=== PATIENT | male | born 1970 | race Caucasian/White ===

== ENCOUNTER 2024-01-26 04:33 | Emergency (ER) | payer OTHER, SELFPAY ==
--- NOTE | 2024-01-26 04:34 | ED.GENADULT ---
HPI - General Adult General Chief complaint: Back Pain/Injury Stated complaint: back pain Time Seen by Provider: 01/26/24 04:33 History of Present Illness HPI narrative: Patient is a 53-year-old male with no significant past medical history presents via medics from [facility] for evaluation of low back pain. He states that a few days ago he was working on his car in ?tweaked his low back. He denies any numbness weakness tingling to lower extremities denies any saddle paresthesias denies any bowel or urinary retention or incontinence. States that he did go to to his PCP on 01/23/2024 when he initially hurt his back, he was prescribed cyclobenzaprine for home he states that the pain has been intermittent but woke up today with severe low back spasms/pain to the point that he was not able to stand and walk therefore called medics. According to medics he did receive a proximally 1.5 mg of Dilaudid and did receive 5 mg of Versed prior to arrival. He denies any other injuries denies any other symptoms at this time. At time of evaluation patient was able to stand bear weight and ambulate from the stretcher. Related Data Previous Rx's Medication Instructions Recorded cyclobenzaprine 10 mg tablet 10 mg PO BEDTIME PRN muscle spasm 01/23/24 #7 tabs diazepam 5 mg tablet (Valium) 5 mg PO BID PRN muscle spasm 5 01/26/24 days #10 tabs prednisone 20 mg tablet 40 mg (2 x 20 mg) PO DAILY 5 days 01/26/24 #10 tabs Allergies Allergy/AdvReac Type Severity Reaction Status Date / Time No Known Drug Allergies Allergy Verified 01/23/24 11:03 Review of Systems Review of Systems Narrative: General: Denies fever, chills, weight loss HEENT: Denies headache, eye drainage, eye irritation, head trauma, sore throat, voice change Cardiovascular: Denies any chest pain, palpitations, shortness of breath, tachycardia Respiratory: Denies any shortness of breath, cough, wheeze, stridor GI/: Denies any abdominal pain, nausea, vomiting, diarrhea, bright red blood per rectum, melanotic stools, urinary frequency, urinary retention, dysuria, hematuria MSK: Positive low back pain Skin: Denies any rashes, lesions, discoloration Neuro: Denies any headache, lightheadedness, dizziness, fainting, weakness Psych: Denies SI/HI Patient History Social History Smoking Status: Never smoker Smoking Status: Never smoker Exam Narrative Exam Narrative: General: Cooperative, comfortable, well-developed, not in acute distress HEENT: Normocephalic, atraumatic, PERRLA, normal sclera, eyelids normal, Neck: Active full range of motion, atraumatic Chest: Normal to inspection, negative crepitus, no overlying erythema ecchymosis Respiratory: Normal respiratory effort, not in acute respiratory distress, clear to auscultation bilaterally negative cough, wheeze, tachypnea, rhonchi, rales Cardiology: Regular rate rhythm negative gallop, murmur, rubs GI/: Normal to inspection, soft, nonrigid, no tenderness to palpation, exam deferred MSK: Full range of active range of motion of all 4 extremities, atraumatic, patient with paraspinal muscle tenderness to palpation of the lumbar spine but no tenderness to palpation of the midline lumbar thoracic spine. He was able to stand bear weight ambulate slowly from the stretcher here in the emergency department. Skin: No rashes lesions noted Neuro: Alert awake oriented x3, moves all 4 extremities spontaneously, cranial nerves intact, able to answer all questions appropriately follows commands appropriately Psych: Cooperative, negative suicidal or homicidal ideations Initial Vital Signs Initial Vital Signs: Vital Signs Temperature 97.7 F 01/26/24 04:44 Pulse Rate 89 01/26/24 04:44 Respiratory Rate 18 01/26/24 04:44 Blood Pressure 163/93 H 01/26/24 04:44 Pulse Oximetry 93 01/26/24 04:44 Oxygen Delivery Method Room Air 01/26/24 04:44 Course Orders Ordered: ED Orders 01/26/24 04:42 CT lumbar spine wo con Stat Diazepam (Diazepam 2 Mg Tablet) 2 mg PO NOW ONE Stop: 01/26/24 05:55 Discontinued Medications Dexamethasone (Dexamethasone 10 Mg/Ml Vial) 10 mg PO NOW ONE Stop: 01/26/24 04:41 Last Admin: 01/26/24 05:12 Dose: 10 mg Diazepam (Diazepam 2 Mg Tablet) 2 mg PO NOW ONE Stop: 01/26/24 04:41 Last Admin: 01/26/24 05:14 Dose: 2 mg Ketorolac Tromethamine (Ketorolac 30 Mg/Ml Vial) 15 mg IM NOW ONE Stop: 01/26/24 04:41 Last Admin: 01/26/24 05:12 Dose: 15 mg Vital Signs Vital signs: Vital Signs - 8 hr 01/26/24 04:44 Temperature 97.7 F Pulse Rate 89 Respiratory Rate 18 Blood Pressure 163/93 H Pulse Oximetry 93 Oxygen Delivery Method Room Air Medical Decision Making Differential Diagnosis Differential Diagnosis: Muscle spasm, muscle strain, Imaging Data CT lumbar: Radiologist's Impression: Preliminary read showing spondylotic changes of the lumbar spine without acute traumatic injury, there is no central or significant central canal stenosis. MDM Narrative Medical decision making narrative: Patient is a 53-year-old male without any significant past medical history presents from [facility] for evaluation of low back pain. States that this started approximately 3 days ago when he is work on his car. States that he has been having intermittent low back pain since then but woke up this morning with worsening back pain. Denies any red flags for cauda equina. Did receive Dilaudid and Versed by medics prior to arrival. Here patient received Decadron, Toradol, Valium, CT scan was obtained which showed no acute findings. Patient was given strict return precautions he will be sent home with steroids and Valium, send patient home with walker he verbalized understanding of this agrees to being discharged home with outpatient follow up Discharge Plan Departure Patient Disposition: Home Clinical Impression: Lumbar strain Activity Restrictions/Additional Instructions: Please read the discharge instructions sheet carefully and bring all papers to all doctor follow-up visits, as it may contain information that your doctor may want to see. Disease processes change and evolve, if your symptoms worsen or if you develop any new symptoms that are concerning to you please return for evaluation. Your evaluation today does not show any evidence of any life-threatening/serious illnesses requiring admission to the hospital or surgery. Please follow-up with your doctor for re-evaluation in approximately 1 day. Seek immediate medical attention for any worrisome symptoms. Prescriptions: New diazepam [Valium] 5 mg tablet 5 mg PO BID PRN (Reason: muscle spasm) 5 Days Qty: 10 0RF prednisone 20 mg tablet 40 mg PO DAILY 5 Days Qty: 10 0RF No Action cyclobenzaprine 10 mg tablet 10 mg PO BEDTIME PRN (Reason: muscle spasm) Qty: 7 0RF Rx Instructions: Do not take medication prior to working/driving. Referrals: Basia Ibrahim PA-C [Primary Care Provider] - Stand Alone Forms: Patient Portal/API/Survey, Work Release Note
[2024-01-26 04:39] VITALS: BP 165/93; PULSE 90; O2SAT 93
--- NOTE | 2024-01-26 04:42 | DI.CT.S_ITS ---
PROCEDURE: CT LUMBAR SPINE WO CON INDICATIONS: low back pain TECHNIQUE: Noncontrast 3 mm thick sections acquired from the T12 level to the sacrum. Sagittal and coronal reformats were constructed. For radiation dose reduction, the following was used: automated exposure control. COMPARISON: None. FINDINGS: Image quality: Excellent. Bones: There is normal bony alignment. No acute vertebral body compression fractures. No suspicious lytic or blastic bony lesions. No pars defects. Five lumbar-type vertebral bodies are present. T12-L1: Normal L1-L2: Minimal degenerative changes with osteophytosis and minimal loss of disc height. L2-L3: Normal L3-L4: Normal L4-L5: Normal L5-S1: There are mild degenerative changes with subchondral sclerosis and cystic degeneration with minimal loss of disc height. Soft tissues: No retroperitoneal masses or hematomas. Visualized aorta is normal in caliber. IMPRESSION: Minimal to mild degenerative disc disease at L1-L2 and L5-S1 Dictated by: Bridgette Santos M.D. on 01/26/2024 at 8:13 Approved by: Bridgette Santos M.D. on 01/26/2024 at 8:16
[2024-01-26 04:44] VITALS: BP 163/93; PULSE 89; RESP 18; TEMP 36.5; O2SAT 93; BMI 30.3
[2024-01-26 05:06] VITALS: BP 147/84; PULSE 80; O2SAT 92
[2024-01-26] MEDS: KETOROLAC 30 MG/ML VIAL 15 MG IM (05:12)
[2024-01-26] MEDS: DEXAMETHASONE 10 MG/ML VIAL PO (05:12)
[2024-01-26] MEDS: diazePAM 2 MG TABLET PO ×2 (05:14→06:55)
[2024-01-26 05:30] VITALS: BP 148/81; PULSE 81; O2SAT 91
[2024-01-26 06:00] VITALS: BP 134/74; PULSE 76; RESP 18; O2SAT 92
== END 2024-01-26 07:00 | disposition home or self-care (01) ==
PROVIDERS: Emergency Provider Student in an Organized Health Care Education/Training Program; PCP Physician Assistant
DX: S39.012A Strain of muscle, fascia and tendon of lower back, initial encounter (principal); X50.1XXA Overexertion from prolonged static or awkward postures, initial encounter
CPT/HCPCS: 72131; 96372; 99284; J1100; J1885

== ENCOUNTER → 2024-02-21 13:08 | Outpatient (CLI) | payer OTHER, SELFPAY ==
[2024-02-21 20:01] LABS: Add Manual Diff / Slide Review NO; Basophils Absolute Auto 0 /uL (0-100); Basophils Percent Auto 0.5 % (0-2); Eosinophils Absolute Auto 200 /uL (0-450); Eosinophils Percent Auto 3.4 % (2-4); Hematocrit 46.9 % (41-53); Lymphocytes Absolute Auto 1600 /uL (1100-4500); Lymphocytes Percent Auto 26.5 % (25-40); Mean Corpuscular HGB Conc 34.2 % (30-36); Mean Corpuscular Hemoglobin 29.1 PG (26-34); Mean Corpuscular Volume 85.2 fL (80-100); Monocytes Absolute Auto 500 /uL (0-900); Monocytes Percent Auto 8.2 % (3-14); Neutrophils Absolute Auto 3800 /uL (1500-7000); Neutrophils Percent Auto 61.4 % (50-75); Platelet Count 256 X10^3/uL (150-400); Red Blood Cell Count 5.51 X10^6/uL (4.5-5.9); Red Cell Distribution Width 14.2 % (11.6-14.8); White Blood Cell Count 6.2 X10^3/uL (4.5-11.0)
[2024-02-21 20:10] LABS: HEMOLYSIS < 15 (0-50); Iron 144 ug/dL (49-181)
[2024-02-21 20:14] LABS: Alanine Aminotransferase 127 IU/L (<50); Albumin 4.8 g/dL (3.5-5.0); Albumin Globulin Ratio 1.3 (1.0-2.8); Alkaline Phosphatase 92 U/L (38-126); Aspartate Aminotransferase 88 IU/L (17-59); Bilirubin Total 1.4 mg/dL (0.2-1.3); Blood Urea Nitrogen 17 mg/dL (9-20); Calcium 9.6 mg/dL (8.4-10.2); Carbon Dioxide 30 mmol/L (22-32); Chloride 101 mmol/L (98-107); Estimated Glomerular Filt Rate > 60 mL/min (>60); Globulin 3.7 g/dL (1.7-4.1); Glucose 94 mg/dL (70-100); HEMOLYSIS 30 (0-50); Potassium 4.1 mmol/L (3.4-5.1); Sodium 138 mmol/L (137-145); Total Protein 8.5 g/dL (6.3-8.2)
[2024-02-21 20:25] LABS: Percent Iron Saturation 47 % (20-50); Total Iron Binding Capacity 306 ug/dL (261-462); Transferrin 313 mg/dL (206-381)
[2024-02-21 20:45] LABS: Thyroid Stimulating Hormone 1.77 uIU/mL (0.47-4.68)
[2024-02-21 20:48] LABS: Ferritin 393 ng/mL (18-464)
[2024-02-21 21:22] LABS: Folate 19.7 ng/mL (2.76-20.0); Vitamin B12 885 pg/mL (239-931)
[2024-02-23 03:36] LABS: Ceruloplasmin 25.8 mg/dL (16.0-31.0)
[2024-02-26 13:11] LABS: ANA Screen, IFA Negative (.)
== END ==
PROVIDERS: PCP Family Medicine; Visit Provider Family Medicine
DX: R53.83 Other fatigue (principal); R29.818 Other symptoms and signs involving the nervous system; R25.8 Other abnormal involuntary movements; G25.3 Myoclonus; R25.1 Tremor, unspecified; R29.2 Abnormal reflex; I73.00 Raynaud's syndrome without gangrene; R03.0 Elevated blood-pressure reading, without diagnosis of hypertension; R06.81 Apnea, not elsewhere classified
CPT/HCPCS: 80053; 82390; 82607; 82728; 82746; 83540; 83550; 84443; 85025; 86038

== ENCOUNTER → 2024-02-24 16:00 | Outpatient (CLI) | payer OTHER, SELFPAY ==
--- NOTE | 2024-02-24 16:03 | DI.MRI.S_ITS ---
PROCEDURE: MR HEAD/BRAIN WO/W CON INDICATIONS: hyperreflexia with 2 beats clonus and possible babinski TECHNIQUE: Noncontrast axial T1 spin echo, axial T2 fast spin echo, sagittal and axial FLAIR, coronal T2 fast spin echo, axial gradient echo, axial diffusion and ADC through the brain. After the administration of contrast, axial and coronal and sagittal 3D VIBE or T1 spin echo with fat saturation through the brain. COMPARISON: None. FINDINGS: CSF Spaces: Basal cisterns are patent. No extra-axial fluid collections. Ventricles are normal in size and shape. Brain: No intracranial masses or hemorrhage. Egan/white matter interface is normal. Brainstem appears normal. Diffusion-weighted sequence is unremarkable without evidence of acute infarct. Normal intravascular flow voids are present. Skull and face: Calvarial marrow is normal in signal. Orbits appear normal. Sinuses: Sinuses and mastoids appear clear. IMPRESSION: Normal MRI of the brain with and without contrast Approved by: Wilbert Jackson M.D. on 02/24/2024 at 16:37
== END ==
PROVIDERS: PCP Family Medicine; Referring Provider Family Medicine; Visit Provider Family Medicine
DX: G25.3 Myoclonus (principal); R25.8 Other abnormal involuntary movements; R25.1 Tremor, unspecified; R29.2 Abnormal reflex; R29.818 Other symptoms and signs involving the nervous system
CPT/HCPCS: 70553; A9579

== ENCOUNTER → 2024-03-20 13:40 | Outpatient (CLI) | payer OTHER, SELFPAY ==
[2024-03-20 20:13] LABS: Magnesium 1.8 mg/dL (1.6-2.3)
[2024-03-22 08:10] LABS: Parathyroid Hormone Int 51 pg/mL (15-65)
[2024-03-22 10:36] LABS: Ionized Calcium 4.9 mg/dL (4.5-5.6)
== END ==
PROVIDERS: PCP Family Medicine; Visit Provider Family Medicine
DX: G25.3 Myoclonus (principal)
CPT/HCPCS: 82330; 83735; 83970

== ENCOUNTER → 2024-05-03 14:14 | Outpatient (CLI) | payer OTHER, SELFPAY ==
--- NOTE | 2024-05-03 14:16 | DI.MRI.S_ITS ---
PROCEDURE: MR THORACIC SPINE WO CON INDICATIONS: propriospinal muclonus,paresthesia of skin,spasms TECHNIQUE: Noncontrast sagittal T1 spine echo and T2 fast spin echo, sagittal STIR, and T2 fast spin echo through the thoracic spine. COMPARISON: None. FINDINGS: Image quality: Excellent. Alignment and Curvature: There is normal bony alignment. Bone Marrow: Marrow is of normal overall signal. No acute vertebral body compression fractures. Spinal Cord: Visualized spinal cord is normal in size and signal. Paraspinous Soft Tissues: No paravertebral masses. Miscellaneous: On axial images, central canal and foramina appear widely patent at all scanned levels. IMPRESSION: Unremarkable MRI of the thoracic spine Approved by: Wilbert Jackson M.D. on 05/05/2024 at 12:15
--- NOTE | 2024-05-03 14:16 | DI.MRI.S_ITS ---
PROCEDURE: MR CERVICAL SPINE WO CON INDICATIONS: Pain TECHNIQUE: Noncontrast sagittal T1 spin echo and T2 fast spin echo, sagittal STIR, foraminal oblique sagittal T2 fast spin echo, and axial gradient echo or T2 fast spin echo through the cervical spine. COMPARISON: None. FINDINGS: Image quality: Excellent. Alignment and Curvature: There is normal bony alignment. Bone Marrow: Marrow demonstrates normal overall signal. Spinal Cord: Visualized spinal cord has normal size and signal. No cerebellar tonsillar herniation. Paraspinous Soft Tissues: No paravertebral masses. Prevertebral soft tissues are normal in thickness. C2-C3: Normal appearance. C3-C4: No central or foraminal stenosis C4-C5: Central or foraminal stenosis C5-C6: Posterior disc osteophyte complex No central or foraminal stenosis C6-C7: Posterior disc osteophyte complex. Mild central stenosis. Arthropathy. Moderate bilateral foraminal stenosis greater on the left C7-T1: No central or foraminal stenosis IMPRESSION: Arthropathy related moderate bilateral foraminal stenosis at C6-7 Approved by: Wilbert Jackson M.D. on 05/05/2024 at 12:19
== END ==
PROVIDERS: PCP Family Medicine; Referring Provider Psychiatry & Neurology Neurology; Visit Provider Psychiatry & Neurology Neurology
DX: M47.812 Spondylosis without myelopathy or radiculopathy, cervical region (principal); M48.02 Spinal stenosis, cervical region; G25.3 Myoclonus; R20.2 Paresthesia of skin; M62.838 Other muscle spasm; R29.2 Abnormal reflex; R33.9 Retention of urine, unspecified
CPT/HCPCS: 72141; 72146

== ENCOUNTER 2024-05-29 17:28 | Emergency (ER) | payer OTHER, SELFPAY ==
[2024-05-29 17:49] VITALS: BP 143/87; PULSE 75; RESP 16; TEMP 36.8; O2SAT 97; BMI 30.9
[2024-05-29 18:00] VITALS: BP 136/85
[2024-05-29 18:01] VITALS: PULSE 75; O2SAT 94
[2024-05-29 18:04] LABS: Add Manual Diff / Slide Review NO; Basophils Absolute Auto 0 /uL (0-100); Basophils Percent Auto 0.5 % (0-2); Eosinophils Absolute Auto 200 /uL (0-450); Eosinophils Percent Auto 2.6 % (2-4); Hematocrit 50.5 % (41-53); Hemoglobin 17.1 g/dL (13.5-17.5); Lymphocytes Absolute Auto 1900 /uL (1100-4500); Lymphocytes Percent Auto 23.9 % (25-40); Mean Corpuscular HGB Conc 33.9 % (30-36); Mean Corpuscular Volume 85.5 fL (80-100); Monocytes Absolute Auto 600 /uL (0-900); Monocytes Percent Auto 7.8 % (3-14); Neutrophils Absolute Auto 5100 /uL (1500-7000); Neutrophils Percent Auto 65.2 % (50-75); Platelet Count 266 X10^3/uL (150-400); Red Blood Cell Count 5.91 X10^6/uL (4.5-5.9); Red Cell Distribution Width 13.3 % (11.6-14.8); White Blood Cell Count 7.9 X10^3/uL (4.5-11.0)
[2024-05-29 18:16] LABS: Alanine Aminotransferase 43 IU/L (<50); Albumin 4.8 g/dL (3.5-5.0); Albumin Globulin Ratio 1.5 (1.0-2.8); Alkaline Phosphatase 84 U/L (38-126); Aspartate Aminotransferase 45 IU/L (17-59); BUN Creatinine Ratio 19.4 (6-22); Bilirubin Total 1.2 mg/dL (0.2-1.3); Blood Urea Nitrogen 20 mg/dL (9-20); Calcium 9.2 mg/dL (8.4-10.2); Carbon Dioxide 20 mmol/L (22-32); Chloride 104 mmol/L (98-107); Estimated Glomerular Filt Rate > 60 mL/min (>60); Globulin 3.3 g/dL (1.7-4.1); Glucose 92 mg/dL (70-100); HEMOLYSIS 20 (0-50); Lipase 68 U/L (23-300); Potassium 3.9 mmol/L (3.4-5.1); Sodium 137 mmol/L (137-145); Total Protein 8.1 g/dL (6.3-8.2)
[2024-05-29 18:30] VITALS: BP 132/88; PULSE 76; O2SAT 93
[2024-05-29 19:00] VITALS: BP 125/88; PULSE 73; O2SAT 94
[2024-05-29 19:30] VITALS: BP 128/87; PULSE 72; RESP 16; O2SAT 94
--- NOTE | 2024-05-29 19:34 | ED_ITS ---
HPI - Abdominal Pain General Chief Complaint: Abdominal Pain Stated Complaint: abd pain Time Seen by Provider: 05/29/24 19:34 Source: patient Mode of arrival: EMS History of Present Illness HPI narrative: 54-year-old male with a past medical history of diverticulitis comes into the ED from home for evaluation of abdominal pain. He states that he was diagnosed on Sunday with diverticulitis but states his pain is getting worse to his abdomen. He states that he does have a CT scan scheduled for next week on the this was ordered by his primary care doctor who started him on Augmentin for diverticulitis. He states he has a little bit of nausea but otherwise not complaining of any other symptoms at this time. Has a history of appendectomy. Related Data Previous Rx's Medication Instructions Recorded amoxicillin 875 mg-potassium 1 tab PO BID diverticulitis #20 05/26/24 clavulanate 125 mg tablet tabs polyethylene glycol 3350 17 17 g PO DAILY 1 month #238 grams 05/29/24 gram/dose oral powder (Miralax) Allergies Allergy/AdvReac Type Severity Reaction Status Date / Time No Known Drug Allergies Allergy Verified 05/29/24 17:52 Review of Systems Review of Systems Narrative: General: Denies fever, chills, weight loss HEENT: Denies headache, eye drainage, eye irritation, head trauma, sore throat, voice change Cardiovascular: Denies any chest pain, palpitations, tachycardia Respiratory: Denies any shortness of breath, cough, wheeze, stridor GI/: Positiveabdominal pain, nausea, vomiting, denies diarrhea, bright red blood per rectum, melanotic stools, urinary frequency, urinary retention, dysuria, hematuria MSK: Denies any joint pain, muscle pains, swelling Skin: Denies any rashes, lesions, discoloration Neuro: Denies any headache, lightheadedness, dizziness, fainting, weakness Psych: Denies SI/HI Patient History Social History Smoking Status: Never smoker additional social history: has history of bulging discs in [place] in the past. no etoh, no cigs [place] for 7 yrs lives with works for [employer] brother -- fibromyalgia 02/2024 Smoking Status: Never smoker Exam Narrative Exam Narrative: General: Cooperative, comfortable, well-developed, not in acute distress HEENT: Normocephalic, atraumatic, PERRLA, normal sclera, eyelids normal, Neck: Active full range of motion, atraumatic Chest: Normal to inspection, negative crepitus, no overlying erythema ecchymosis Respiratory: Normal respiratory effort, not in acute respiratory distress, clear to auscultation bilaterally negative cough, wheeze, tachypnea, rhonchi, rales Cardiology: Regular rate rhythm negative gallop, murmur, rubs GI/: Normal to inspection, soft, nonrigid, no tenderness to palpation, exam deferred MSK: Full range of active range of motion of all 4 extremities, atraumatic Skin: No rashes lesions noted Neuro: Alert awake oriented x3, moves all 4 extremities spontaneously, cranial nerves intact, able to answer all questions appropriately follows commands appropriately Psych: Cooperative, negative suicidal or homicidal ideations Initial Vital Signs Initial Vital Signs: Vital Signs Temperature 98.2 F 05/29/24 17:49 Pulse Rate 75 05/29/24 17:49 Respiratory Rate 16 05/29/24 17:49 Blood Pressure 143/87 H 05/29/24 17:49 Pulse Oximetry 97 05/29/24 17:49 Oxygen Delivery Method Room Air 05/29/24 17:49 Course Orders Ordered: ED Orders 05/29/24 17:49 EKG-12 Lead Stat 05/29/24 17:53 Complete Blood Count AUTO DIFF Stat Comprehensive Metabolic Panel Stat Lipase Stat 05/29/24 19:44 CT abdomen pelvis w con Stat Ondansetron HCl (Ondansetron 4 Mg/2 Ml Inj) 4 mg IV NOW PRN PRN Reason: Nausea And Vomiting Ondansetron HCl (Ondansetron 4 Mg Odt) 4 mg PO NOW PRN PRN Reason: Nausea And Vomiting Discontinued Medications Sodium Chloride (Normal Saline 0.9%) 1,000 mls @ 1,000 mls/hr IV BOLUS ONE Stop: 05/29/24 20:43 Last Admin: 05/29/24 19:53 Dose: 1,000 mls/hr Documented By: ORQUIDEA Ketorolac Tromethamine (Ketorolac 30 Mg/Ml Vial) 15 mg IV NOW ONE Stop: 05/29/24 19:45 Last Admin: 05/29/24 19:53 Dose: 15 mg Documented By: ORQUIDEA Ondansetron HCl (Ondansetron 4 Mg/2 Ml Inj) 4 mg IV NOW ONE Stop: 05/29/24 19:45 Last Admin: 05/29/24 19:54 Dose: 4 mg Documented By: LS Vital Signs Vital signs: Vital Signs - 8 hr 05/29/24 17:49 05/29/24 18:00 05/29/24 18:01 Temperature 98.2 F Pulse Rate 75 75 Respiratory Rate 16 Blood Pressure 143/87 H 136/85 Pulse Oximetry 97 94 Oxygen Delivery Method Room Air Room Air 05/29/24 18:30 05/29/24 18:30 05/29/24 19:00 Temperature Pulse Rate 76 73 Respiratory Rate Blood Pressure 132/88 Pulse Oximetry 93 94 Oxygen Delivery Method 05/29/24 19:00 05/29/24 19:30 05/29/24 19:30 Temperature Pulse Rate 72 Respiratory Rate 16 Blood Pressure 125/88 128/87 Pulse Oximetry 94 Oxygen Delivery Method Room Air MDM - Abdominal Pain Differential Diagnosis Differential diagnosis: Likely abdominal pain, constipation, diverticulitis, small bowel obstruction and other ( diverticulitis, urinary tract infection, electrolyte abnormality) Lab Data 05/29/24 17:53 05/29/24 17:53 Labs: Lab Results 05/29/24 Range/Units 17:53 WBC 7.9 (4.5-11.0) X10^3/uL RBC 5.91 H (4.5-5.9) X10^6/uL Hgb 17.1 (13.5-17.5) g/dL Hct 50.5 (41-53) % MCV 85.5 (80-100) fL MCH 29.0 (26-34) PG MCHC 33.9 (30-36) % RDW 13.3 (11.6-14.8) % Plt Count 266 (150-400) X10^3/uL Neut % (Auto) 65.2 (50-75) % Lymph % (Auto) 23.9 L (25-40) % [place] % (Auto) 7.8 (3-14) % Eos % (Auto) 2.6 (2-4) % Baso % (Auto) 0.5 (0-2) % Neut # (Auto) 5100 (1075-3105) /uL Lymph # (Auto) 1900 (7448-1245) /uL [place] # (Auto) 600 (0-900) /uL Eos # (Auto) 200 (0-450) /uL Baso # (Auto) 0 (0-100) /uL Sodium 137 (137-145) mmol/L Potassium 3.9 (3.4-5.1) mmol/L Chloride 104 (98-107) mmol/L Carbon Dioxide 20 L (22-32) mmol/L BUN 20 (9-20) mg/dL Creatinine 1.03 (0.66-1.25) mg/dL Estimated GFR > 60 (>60) mL/min BUN/Creatinine Ratio 19.4 (6-22) Glucose 92 (70-100) mg/dL Calcium 9.2 (8.4-10.2) mg/dL Total Bilirubin 1.2 (0.2-1.3) mg/dL AST 45 (17-59) IU/L ALT 43 (<50) IU/L Alkaline Phosphatase 84 (38-126) U/L Total Protein 8.1 (6.3-8.2) g/dL Albumin 4.8 (3.5-5.0) g/dL Globulin 3.3 (1.7-4.1) g/dL Albumin/Globulin Ratio 1.5 (1.0-2.8) Lipase 68 (23-300) U/L Imaging Data CT scan - abdomen/pelvis: Radiologist's Impression: [place] [address] CT Scan Report Signed Patient: Andra Parnell MR#: [id number] : 1970 Acct:[id number] Age/Sex: 54 / M Date of Service: 05/29/24 Loc: ED Accession Number: [id number] Procedure: CT abdomen pelvis w con Ordering Provider: Teofilo Bradshaw D.O. PROCEDURE: CT ABDOMEN PELVIS W CON INDICATIONS: lower abd pain, hx divertic TECHNIQUE: After the administration of intravenous contrast, axial sections acquired from the lung bases to the pubic symphysis. Coronal and sagittal reformats were performed. For radiation dose reduction, the following was used: automated exposure control, adjustment of mA and/or kV according to patient size. COMPARISON: None. FINDINGS: Image quality: Diagnostic Lower chest: Basal atelectasis. Normal heart size. Liver: Possible steatosis Gallbladder and biliary system: Unremarkable, nondilated Pancreas: No ductal dilation Spleen: Nonenlarged Adrenals: No discrete nodules Kidneys: No solid mass. No hydronephrosis. Left lower pole suspected cyst. Vessels and lymph nodes: The main portal vein is patent. No abdominal aortic aneurysm. No pathologic lymph nodes by size criteria. Bowel and peritoneum: No small bowel obstruction. No drainable ascites or abscess. Overall moderate fecal loading. Cecal suture line. Body wall: Unremarkable Pelvis: Bladder is unremarkable. Mildly heterogeneous, enlarged prostate, otherwise not well assessed on CT Bones: Intact pelvic ring. Degenerative osseous changes. No aggressive appearing osseous abnormality IMPRESSION: No acute abdominal pelvic abnormality. Moderate colonic fecal loading is seen. No bowel obstruction. Other findings above. MDM Narrative Medical decision making narrative: 54-year-old male with a history of diverticulitis comes into the ED from home for evaluation of abdominal pain, he states that he was started on Augmentin for possible diverticulitis by his primary care doctor on Sunday but presents today due to persistent/worsening abdominal pain. Patient had lab work which did not show leukocytosis Chem panel unremarkable. Patient without any urinary symptoms, CT scan without any signs of acute diverticulitis, however did note moderate colonic fecal loading this is most likely the cause of the patient's abdominal distention pain, however given patient's history of diverticulitis we will instruct patient to continue taking his Augmentin until completion I will also start patient on MiraLax for his constipation which he states he has a history of. He will be referred to Gastroenterology for this patient is well- appearing nontoxic repeat abdominal exam still soft nontender non peritoneal nature. 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 Disease processes change and evolve, if your symptoms worsen or if you develop any new symptoms that are concerning to you please return for evaluation. Your evaluation today does not show any evidence of any life- threatening/serious illnesses requiring admission to the hospital or surgery. Please follow-up with your doctor for re-evaluation in approximately 1 day. Seek immediate medical attention for any worrisome symptoms. *If you do not have a primary care provider please contact the [facility] Resource line at [phone]. They will ask some questions about your medical history and help get you set up with a doctor in the community. Prescriptions: New polyethylene glycol 3350 [Miralax] 17 gram/dose powder 17 g PO DAILY 30 Days Qty: 238 0RF No Action amoxicillin-pot clavulanate 875-125 mg tablet 1 tab PO BID Qty: 20 0RF Referrals: Loyd Mckay MD [Non-Staff] - Evelin Morgan MD [Primary Care Provider] - Stand Alone Forms: Patient Portal/API/Survey
--- NOTE | 2024-05-29 19:44 | DI.CT.S_ITS ---
PROCEDURE: CT ABDOMEN PELVIS W CON INDICATIONS: lower abd pain, hx divertic TECHNIQUE: After the administration of intravenous contrast, axial sections acquired from the lung bases to the pubic symphysis. Coronal and sagittal reformats were performed. For radiation dose reduction, the following was used: automated exposure control, adjustment of mA and/or kV according to patient size. COMPARISON: None. FINDINGS: Image quality: Diagnostic Lower chest: Basal atelectasis. Normal heart size. Liver: Possible steatosis Gallbladder and biliary system: Unremarkable, nondilated Pancreas: No ductal dilation Spleen: Nonenlarged Adrenals: No discrete nodules Kidneys: No solid mass. No hydronephrosis. Left lower pole suspected cyst. Vessels and lymph nodes: The main portal vein is patent. No abdominal aortic aneurysm. No pathologic lymph nodes by size criteria. Bowel and peritoneum: No small bowel obstruction. No drainable ascites or abscess. Overall moderate fecal loading. Cecal suture line. Body wall: Unremarkable Pelvis: Bladder is unremarkable. Mildly heterogeneous, enlarged prostate, otherwise not well assessed on CT Bones: Intact pelvic ring. Degenerative osseous changes. No aggressive appearing osseous abnormality IMPRESSION: No acute abdominal pelvic abnormality. Moderate colonic fecal loading is seen. No bowel obstruction. Other findings above. Dictated by: Arnaldo Linder M.D. on 05/29/2024 at 20:31 Approved by: Arnaldo Linder M.D. on 05/29/2024 at 20:35
[2024-05-29] MEDS: KETOROLAC 30 MG/ML VIAL 15 MG IV (19:53)
[2024-05-29] MEDS: SODIUM CHLORIDE 0.9% 1,000 ML 1000 ML IV (19:53)
[2024-05-29] MEDS: ONDANSETRON 4 MG/2 ML INJ IV (19:54)
--- NOTE | 2024-05-29 20:07 | PC.NURSE ---
Pt to imaging via ED stretcher with power technician.
== END 2024-05-29 21:42 | disposition home or self-care (01) ==
PROVIDERS: Emergency Medicine; Emergency Provider Student in an Organized Health Care Education/Training Program; PCP Family Medicine
DX: R10.9 Unspecified abdominal pain (principal); K59.00 Constipation, unspecified
CPT/HCPCS: 36415; 74177; 80053; 83690; 85025; 96361; 96374; 96375; 99284; J1885; J2405; Q9967

== ENCOUNTER → 2024-08-13 13:34 | Outpatient (CLI) | payer OTHER, SELFPAY ==
[2024-08-13 19:23] LABS: Alanine Aminotransferase 71 IU/L (<50); Albumin 4.8 g/dL (3.5-5.0); Albumin Globulin Ratio 1.7 (1.0-2.8); Alkaline Phosphatase 87 U/L (38-126); Aspartate Aminotransferase 51 IU/L (17-59); Bilirubin Total 1.9 mg/dL (0.2-1.3); Bilirubin Unconjugated 1.4 mg/dL (0.0-1.1); Gamma Glutamyl Transpeptidase 43 U/L (15-73); Globulin 2.9 g/dL (1.7-4.1); HEMOLYSIS 27 (0-50); HEMOLYSIS 35 (0-50); Iron 86 ug/dL (49-181); Total Protein 7.7 g/dL (6.3-8.2)
[2024-08-13 19:38] LABS: Percent Iron Saturation 23 % (20-50); Total Iron Binding Capacity 377 ug/dL (261-462); Transferrin 333 mg/dL (206-381)
[2024-08-13 19:59] LABS: Ferritin 69 ng/mL (18-464)
[2024-08-15 00:10] LABS: HBsAg Screen Negative (Negative); Hepatitis A Antibody IgM Negative (Negative); Hepatitis B Core Antibody IgM Negative (Negative); Hepatitis C Antibody Non Reactive (Non Reactive)
[2024-08-15 04:39] LABS: Ceruloplasmin 21.9 mg/dL (16.0-31.0)
== END ==
PROVIDERS: PCP Family Medicine; Visit Provider Family Medicine
DX: R10.32 Left lower quadrant pain (principal); K75.9 Inflammatory liver disease, unspecified; I10 Essential (primary) hypertension
CPT/HCPCS: 80074; 80076; 82390; 82525; 82728; 82977; 83540; 83550